=== PATIENT | male | born 1980 ===

== ENCOUNTER 2025-05-10 14:03 | Emergency (ER) | payer SELFPAY ==
[2025-05-10] MEDS: Diphtheria,Pertussis(Acell),Tetanus Vaccine 0.5 ML Syringe IM ONE (15:30)
== END 2025-05-10 15:35 | disposition home or self-care (01) ==
LOC: JD.ED 14:03
DX: M79.662 Pain in left lower leg (principal); I10 Essential (primary) hypertension; Z79.899 Other long term (current) drug therapy
CPT/HCPCS: 73590-26-LT; 73590-LT; 99283